=== PATIENT | female | born 1965 ===

== ENCOUNTER 2020-10-08 18:24 | Emergency (ER) | payer OTHER ==
[~2020-10-08] VITALS: Ht 152.4 cm; Wt 77.1 kg
[~2020-10-08 18:24] MED LIST: CELEBREX200MG PO; CIPRO500 MG PO; FLAGYL500MG PO; JANUMET 50-1,1 UDTAB; VASOTEC10 MG
[2020-10-08] MEDS ORDERED: ORPHENADRINE C100 MG PO (23:44)
[2020-10-08] MEDS ORDERED: KETO10TA2 PO (23:44)
[2020-10-08] MEDS ORDERED: PEPCID AC20 MG PO (23:44)
== END 2020-10-09 00:41 | disposition home or self-care (01) ==
LOC: ER 18:24
DX: M25.551 Pain in right hip (principal); Z20.822 Contact with and (suspected) exposure to COVID-19

== ENCOUNTER 2022-07-28 12:03 | Outpatient (CLI) | payer OTHER ==
[~2022-07-28 12:03] MED LIST changes: +KETO10TA2 PO; +ORPHENADRINE C100 MG PO; +PEPCID AC20 MG PO
== END 2022-07-28 12:05 | disposition home or self-care (01) ==
LOC: MAMO-SONO 12:03
PROVIDERS: ATTEND Obstetrics & Gynecology Gynecology
DX: E55.9 Vitamin D deficiency, unspecified (principal); N60.12 Diffuse cystic mastopathy of left breast; N60.11 Diffuse cystic mastopathy of right breast; R92.1 Mammographic calcification found on diagnostic imaging of breast; N63.0 Unspecified lump in unspecified breast; R87.610 Atypical squamous cells of undetermined significance on cytologic smear of cervix (ASC-US); N87.0 Mild cervical dysplasia; N93.0 Postcoital and contact bleeding; E66.3 Overweight; N91.1 Secondary amenorrhea